=== PATIENT | male | born 1960 | race African-American/Black ===

== ENCOUNTER 2023-08-26 17:07 | Emergency (ER) | payer SELFPAY ==
[~2023-08-26] VITALS: Ht 182.9 cm; Wt 63.5 kg
[2023-08-26 17:41] VITALS: O2SAT 98
[2023-08-26 19:07] VITALS: TEMP 98
[2023-08-26 19:29] VITALS: BP 130/86; PULSE 87; RESP 19
== END 2023-08-26 19:39 | disposition left against medical advice (07) ==
LOC: ER 17:07
DX: R31.9 Hematuria, unspecified (principal); I10 Essential (primary) hypertension
CPT/HCPCS: 99281